=== PATIENT | female | born 1990 | race African-American/Black ===

== ENCOUNTER 2021-10-11 22:00 | Emergency (ER) | payer MEDICAID ==
[~2021-10-11] VITALS: Ht 170.2 cm; Wt 73.0 kg
[2021-10-12] MEDS ORDERED: IBUP-2029 MT (01:47)
[2021-10-12 01:56] VITALS: BP 131/76
== END 2021-10-12 01:58 | disposition home or self-care (01) ==
LOC: ER 22:00
DX: S09.8XXA Other specified injuries of head, initial encounter (principal); X58.XXXA Exposure to other specified factors, initial encounter; Y93.89 Activity, other specified; Y92.89 Other specified places as the place of occurrence of the external cause; Y99.8 Other external cause status; F12.10 Cannabis abuse, uncomplicated; Z88.0 Allergy status to penicillin
CPT/HCPCS: 81025; 99284